=== PATIENT | female | born 1990 | race Caucasian/White ===

== ENCOUNTER 2016-12-23 18:14 | Emergency (ER) | payer MEDICAID ==
[~2016-12-23] VITALS: Ht 137.2 cm; Wt 56.7 kg
[2016-12-23 18:15] VITALS: BP_SYST 99
[2016-12-23] MEDS ORDERED: NACL 0.9% 1,000 ML IV ONE (19:27)
[2016-12-23] MEDS ORDERED: MORPHINE 4 MG/ML INJ. SYRINGE IVP ONE (19:30)
[2016-12-23] MEDS ORDERED: ONDANSETRON HCL 4 MG/2 ML VIAL IVP ONE (19:30)
[2016-12-23 19:47] LABS: BASOPHILS # (AUTO) 0.1 K/uL (0.0-0.2); BASOPHILS % (AUTO) 0.8 % (0.0-2.0); EOSINOPHILS # (AUTO) 0.3 K/uL (0.0-0.4); EOSINOPHILS % (AUTO) 1.9 % (0.0-4.0); HEMATOCRIT 43.4 % (36-48); HEMOGLOBIN 14.2 g/dL (12.0-16.0); LYMPHOCYTES # (AUTO) 4.3 K/uL (1.0-5.5); LYMPHOCYTES % (AUTO) 30.3 % (20.5-51.5); MEAN CORPUSCULAR HEMOGLOBIN 27 pg (27-31); MEAN CORPUSCULAR HGB CONC 33 % (32-36); MEAN CORPUSCULAR VOLUME 83 fL (79.0-98.0); MONOCYTES % (AUTO) 6.8 % (1.7-9.3); NEUTROPHILS # (AUTO) 8.6 K/uL (1.8-7.7); NEUTROPHILS % (AUTO) 60.2 % (40.0-70.0); PLATELET COUNT (AUTO) 404 K/uL (130-430); RED BLOOD CELL COUNT(AUTO) 5.21 MIL/uL (4.2-6.2); RED CELL DISTRIBUTION WIDTH 11.8 % (9.0-15.0); WHITE BLOOD COUNT (AUTO) 14.3 K/uL (4.8-10.8)
[2016-12-23 19:59] LABS: BILIRUBIN,URINE NEGATIVE (NEGATIVE); BLOOD, URINE NEGATIVE (NEGATIVE); CLARITY/URINE CLEAR (CLEAR); COLOR,URINE YELLOW (YELLOW); GLUCOSE,URINE NEGATIVE (NEGATIVE); KETONES,URINE NEGATIVE (NEGATIVE); LEUKOCYTE ESTERASE ,URINE NEGATIVE (NEGATIVE); NITRITE, URINE NEGATIVE (NEGATIVE); PH,URINE 6.5 (5.0-8.0); PROTEIN URINE NEGATIVE (NEGATIVE)
[2016-12-23 20:11] LABS: CALCIUM 9.3 mg/dL (8.4-11.0); CREATININE 0.62 mg/dL (0.55-1.30); POTASSIUM 4.3 mmol/L (3.5-5.1)
[2016-12-23 20:15] LABS: ALBUMIN 3.8 g/dL (3.4-4.8); TOTAL BILIRUBIN 0.3 mg/dL (0.0-1.0); TOTAL PROTEIN, SERUM 7.9 g/dL (6.4-8.3)
[2016-12-23] MEDS ORDERED: cefTRIAXone 250 MG in LIDOCAINE 1%, 20 ML MDV 0.9 ML IM ONE (21:00)
[2016-12-23] MEDS ORDERED: AZITHROMYCIN 250 MG TABLET PO ONE (21:00)
[2016-12-23 21:50] VITALS: BP_SYST 108
[2016-12-26 06:06] LABS: CHLAMYDIA TRACHOMATIS NAA Negative (Negative); NEISSERIA GONORRHOEAE NAA Negative (Negative)
== END 2016-12-23 21:50 | disposition home or self-care (01) ==
LOC: SED 18:14
DX: N20.0 Calculus of kidney (principal); B00.9 Herpesviral infection, unspecified; Z87.442 Personal history of urinary calculi
CPT/HCPCS: 36415; 74176; 80053; 81003; 83690; 85025; 87205; 87210; 87491; 87591; 96361; 96372; 96374; 96375; 99285; J0696; J2001; J2270; J2405; J7030; Q0144

== ENCOUNTER 2017-05-26 13:50 | Emergency (ER) | payer MEDICAID ==
[~2017-05-26] VITALS: Ht 139.7 cm; Wt 56.7 kg
--- NOTE | 2017-05-26 14:00 | NUR ---
Aurelia Calderon CODING SUPPORT SPECIALIST at bedside completing MSE
[2017-05-26 14:03] VITALS: BP_SYST 99
[2017-05-26 15:41] LABS: BILIRUBIN,URINE NEGATIVE (NEGATIVE); CLARITY/URINE CLEAR (CLEAR); COLOR,URINE YELLOW (YELLOW); GLUCOSE,URINE NEGATIVE (NEGATIVE); KETONES,URINE NEGATIVE (NEGATIVE); PROTEIN URINE NEGATIVE (NEGATIVE)
[2017-05-26 15:42] LABS: BLOOD, URINE NEGATIVE (NEGATIVE); LEUKOCYTE ESTERASE ,URINE NEGATIVE (NEGATIVE); NITRITE, URINE NEGATIVE (NEGATIVE); UROBILINOGEN,URINE NORMAL (0.2-1.0)
--- NOTE | 2017-05-26 17:22 | NUR ---
Called pt x 1, no answer
--- NOTE | 2017-05-26 17:30 | NUR ---
Called pt x2, no answer
--- NOTE | 2017-05-26 17:38 | NUR ---
Called pt x3 , no answer, pt LWBS
== END 2017-05-26 17:38 | disposition left against medical advice (07) ==
LOC: SED 13:50
DX: G43.909 Migraine, unspecified, not intractable, without status migrainosus (principal); R10.9 Unspecified abdominal pain; Z53.21 Procedure and treatment not carried out due to patient leaving prior to being seen by health care provider
CPT/HCPCS: 81003; 81025; 99281; 99284

== ENCOUNTER 2017-06-02 15:24 | Emergency (ER) | payer MEDICAID ==
[~2017-06-02] VITALS: Ht 139.7 cm; Wt 56.7 kg
[2017-06-02 15:29] VITALS: BP_SYST 102
--- NOTE | 2017-06-02 15:34 | NUR ---
Ambulatory to bed 6
--- NOTE | 2017-06-02 15:40 | NUR ---
AUSTYN Moses TUFTING SUPERVISOR at bedside examining patient.
--- NOTE | 2017-06-02 15:45 | NUR ---
Pt ambulated into ED c/o stuffy nose, non-productive cough, headahce, bodyaches, SOB and R sided sharp nonradiating chest pain x2-3 days. PT states she takes tramadol for her symptoms. Pt denies N/V/D. Pt speaking in full sentences, breathing even and unlabored. No other inujuries/complaints per pt/noted. Will continue to monitor.
[2017-06-02] MEDS: KETOROLAC TROMETHAMINE 60 MG/2 ML VIAL IM ONE (15:54)
--- NOTE | 2017-06-02 15:54 | NUR ---
Medication administered. Pt tolerated well. No adverse reactions noted.
--- NOTE | 2017-06-02 16:19 | NUR ---
Respiratory at bedside
[2017-06-02] MEDS: IPRATROPIUM/ALBUTEROL SULFATE 3 ML AMPUL.NEB INH ONE (16:26)
--- NOTE | 2017-06-02 16:38 | NUR ---
Patient given written and verbal discharge instructions and verbalizes understanding. AUSTYN Moses INSURANCE SALES REPRESENTATIVE discussed with patient the results and treatment provided. Patient in stable condition. ID arm band removed. Rx of Albuterol, Motrin, Fluticasone, Promethazine, Augmentin given. Patient educated on pain management and to follow up with PMD. Pain Scale 0. Opportunity for questions provided and answered.
[2017-06-02 16:42] VITALS: BP_SYST 112
== END 2017-06-02 16:41 | disposition home or self-care (01) ==
LOC: SED 15:24
DX: J01.00 Acute maxillary sinusitis, unspecified (principal); Z87.442 Personal history of urinary calculi
CPT/HCPCS: 81025; 94640; 96372; 99283; J1885

== ENCOUNTER 2018-03-07 12:14 | Emergency (ER) | payer MEDICAID ==
[~2018-03-07] VITALS: Ht 142.2 cm; Wt 59.0 kg
[2018-03-07 12:27] VITALS: BP_SYST 110
[2018-03-07] MEDS ORDERED: KETOROLAC TROMETHAMINE 60 MG/2 ML VIAL IM ONE (13:00)
[2018-03-07 13:07] LABS: BASOPHILS # (AUTO) 0.1 K/uL (0.0-0.2); EOSINOPHILS # (AUTO) 0.2 K/uL (0.0-0.4); EOSINOPHILS % (AUTO) 1.9 % (0.0-4.0); HEMATOCRIT 41.5 % (36-48); HEMOGLOBIN 13.5 g/dL (12.0-16.0); LYMPHOCYTES # (AUTO) 3.5 K/uL (1.0-5.5); LYMPHOCYTES % (AUTO) 27.8 % (20.5-51.5); MEAN CORPUSCULAR HEMOGLOBIN 27 pg (27-31); MEAN CORPUSCULAR HGB CONC 33 % (32-36); MEAN CORPUSCULAR VOLUME 84 fL (79.0-98.0); MONOCYTES # (AUTO) 0.7 K/uL (0.0-1.0); MONOCYTES % (AUTO) 5.8 % (1.7-9.3); NEUTROPHILS # (AUTO) 8.1 K/uL (1.8-7.7); NEUTROPHILS % (AUTO) 63.5 % (40.0-70.0); PLATELET COUNT (AUTO) 352 K/uL (130-430); RED BLOOD CELL COUNT(AUTO) 4.94 MIL/uL (4.2-6.2); RED CELL DISTRIBUTION WIDTH 11.3 % (9.0-15.0); WHITE BLOOD COUNT (AUTO) 12.6 K/uL (4.8-10.8)
[2018-03-07] MEDS ORDERED: KETOROLAC TROMETHAMINE 30 MG VIAL IVP ONE (13:15)
[2018-03-07 13:21] LABS: CALCIUM 8.9 mg/dL (8.4-11.0); CREATININE 0.68 mg/dL (0.55-1.30); POTASSIUM 3.7 mmol/L (3.5-5.1)
[2018-03-07 13:25] LABS: ALBUMIN 3.7 g/dL (3.4-4.8); TOTAL BILIRUBIN 0.3 mg/dL (0.0-1.0)
[2018-03-07 14:27] VITALS: BP_SYST 118
== END 2018-03-07 14:27 | disposition home or self-care (01) ==
LOC: SED 12:14
DX: R10.11 Right upper quadrant pain (principal); R73.9 Hyperglycemia, unspecified; R11.10 Vomiting, unspecified; Z87.442 Personal history of urinary calculi
CPT/HCPCS: 36415; 80053; 81025; 85025; 99285

== ENCOUNTER 2018-07-31 10:13 | Emergency (ER) | payer MEDICAID ==
[~2018-07-31] VITALS: Ht 139.7 cm; Wt 61.2 kg
[2018-07-31 10:23] VITALS: BP_SYST 107
[2018-07-31] MEDS ORDERED: NACL 0.9% 1,000 ML IV ONE (10:29)
[2018-07-31] MEDS ORDERED: ONDANSETRON HCL 4 MG/2 ML VIAL IVP ONE (10:30)
[2018-07-31] MEDS ORDERED: KETOROLAC TROMETHAMINE 30 MG VIAL IVP ONE (10:30)
[2018-07-31 11:10] LABS: BILIRUBIN,URINE NEGATIVE (NEGATIVE); BLOOD, URINE NEGATIVE (NEGATIVE); CLARITY/URINE CLEAR (CLEAR); COLOR,URINE YELLOW (YELLOW); GLUCOSE,URINE NEGATIVE (NEGATIVE); KETONES,URINE NEGATIVE (NEGATIVE); LEUKOCYTE ESTERASE ,URINE NEGATIVE (NEGATIVE); NITRITE, URINE NEGATIVE (NEGATIVE); PH,URINE 5.5 (5.0-8.0); PROTEIN URINE NEGATIVE (NEGATIVE); UROBILINOGEN,URINE 0.2 (0.2-1.0)
[2018-07-31 11:32] LABS: HEMATOCRIT 41.4 % (36-48); HEMOGLOBIN 14.1 g/dL (12.0-16.0); MEAN CORPUSCULAR HEMOGLOBIN 28 pg (27-31); MEAN CORPUSCULAR HGB CONC 34 % (32-36); MEAN CORPUSCULAR VOLUME 83 fL (79.0-98.0); PLATELET COUNT (AUTO) 409 K/uL (130-430); RED BLOOD CELL COUNT(AUTO) 4.97 MIL/uL (4.2-6.2); RED CELL DISTRIBUTION WIDTH 12.2 % (9.0-15.0); WHITE BLOOD COUNT (AUTO) 12.8 K/uL (4.8-10.8)
[2018-07-31 11:33] LABS: BASOPHILS # (AUTO) 0.1 K/uL (0.0-0.2); EOSINOPHILS # (AUTO) 0.2 K/uL (0.0-0.4); EOSINOPHILS % (AUTO) 1.6 % (0.0-4.0); LYMPHOCYTES # (AUTO) 4.6 K/uL (1.0-5.5); LYMPHOCYTES % (AUTO) 35.8 % (20.5-51.5); MONOCYTES # (AUTO) 0.9 K/uL (0.0-1.0); MONOCYTES % (AUTO) 7.4 % (1.7-9.3); NEUTROPHILS # (AUTO) 6.9 K/uL (1.8-7.7); NEUTROPHILS % (AUTO) 54.2 % (40.0-70.0)
[2018-07-31 11:39] LABS: CALCIUM 8.6 mg/dL (8.4-11.0); CREATININE 0.53 mg/dL (0.55-1.30)
[2018-07-31 11:44] LABS: ALBUMIN 3.8 g/dL (3.4-4.8); TOTAL BILIRUBIN 0.4 mg/dL (0.0-1.0)
[2018-07-31 11:47] LABS: INR 0.9 (0.8-1.2); PROTHROMBIN TIME 9.3 SECS (9.5-12.5)
[2018-07-31 13:15] VITALS: BP_SYST 107
== END 2018-07-31 13:15 | disposition home or self-care (01) ==
LOC: SED 10:13
DX: N28.89 Other specified disorders of kidney and ureter (principal); N23 Unspecified renal colic; K76.0 Fatty (change of) liver, not elsewhere classified; F17.200 Nicotine dependence, unspecified, uncomplicated; Z71.6 Tobacco abuse counseling; Z87.898 Personal history of other specified conditions
CPT/HCPCS: 36415; 71045; 74176; 80053; 81003; 81025; 82150; 82550; 83605; 83690; 85025; 85610; 85730; 87040; 96374; 96375; 99284; J1885; J2405; J7030

== ENCOUNTER 2018-11-27 21:06 | Emergency (ER) | payer MEDICAID ==
[~2018-11-27] VITALS: Ht 139.7 cm; Wt 59.0 kg
[2018-11-27 21:15] VITALS: BP_SYST 114
--- NOTE | 2018-11-27 21:15 | NUR ---
Pt to ER bed 6 for evaluaton. Bedrails up.
--- NOTE | 2018-11-27 21:25 | NUR ---
Pt is alert and oriented. Pt C/O left sided flank pain and dizzyness. Denies N/V/D. Pain stated 02/23. No other complaints at this time. VSS. Will continue to monitor.
--- NOTE | 2018-11-27 21:40 | NUR ---
ER MD JOSÉ AT BEDSIDE EXAMINING PATIENT.
[2018-11-27 21:51] LABS: BASOPHILS # (AUTO) 0.1 K/uL (0.0-0.2); BASOPHILS % (AUTO) 0.7 % (0.0-2.0); EOSINOPHILS # (AUTO) 0.3 K/uL (0.0-0.4); EOSINOPHILS % (AUTO) 2.5 % (0.0-4.0); HEMATOCRIT 40.2 % (36-48); HEMOGLOBIN 13.6 g/dL (12.0-16.0); LYMPHOCYTES # (AUTO) 5.6 K/uL (1.0-5.5); LYMPHOCYTES % (AUTO) 42.8 % (20.5-51.5); MEAN CORPUSCULAR HEMOGLOBIN 29 pg (27-31); MEAN CORPUSCULAR HGB CONC 34 % (32-36); MEAN CORPUSCULAR VOLUME 84 fL (79.0-98.0); MONOCYTES # (AUTO) 0.9 K/uL (0.0-1.0); MONOCYTES % (AUTO) 6.8 % (1.7-9.3); NEUTROPHILS # (AUTO) 6.2 K/uL (1.8-7.7); NEUTROPHILS % (AUTO) 47.2 % (40.0-70.0); PLATELET COUNT (AUTO) 340 K/uL (130-430); RED BLOOD CELL COUNT(AUTO) 4.77 MIL/uL (4.2-6.2); RED CELL DISTRIBUTION WIDTH 12.3 % (9.0-15.0); WHITE BLOOD COUNT (AUTO) 13.1 K/uL (4.8-10.8)
[2018-11-27 21:57] LABS: BILIRUBIN,URINE NEGATIVE (NEGATIVE); BLOOD, URINE NEGATIVE (NEGATIVE); CLARITY/URINE CLEAR (CLEAR); COLOR,URINE YELLOW (YELLOW); GLUCOSE,URINE NEGATIVE (NEGATIVE); KETONES,URINE NEGATIVE (NEGATIVE); LEUKOCYTE ESTERASE ,URINE NEGATIVE (NEGATIVE); NITRITE, URINE NEGATIVE (NEGATIVE); PH,URINE 6.5 (5.0-8.0); PROTEIN URINE NEGATIVE (NEGATIVE)
[2018-11-27 22:00] LABS: CALCIUM 9.1 mg/dL (8.4-11.0); CREATININE 0.86 mg/dL (0.55-1.30); POTASSIUM 3.7 mmol/L (3.5-5.1)
[2018-11-27] MEDS ORDERED: MORPHINE 4 MG/ML INJ. SYRINGE IVP ONE (22:00)
[2018-11-27] MEDS ORDERED: NACL 0.9% 1,000 ML IV ONE (22:00)
--- NOTE | 2018-11-27 22:05 | NUR ---
# 22 gauge angiocath placed to RAC. Use of asceptic technique. Opsite placed over site. Blood return noted. Flushed with 10 cc of normal saline. No evidence of infiltration noted. Patient tolerated well.
[2018-11-27 22:06] LABS: ALBUMIN 3.5 g/dL (3.4-4.8); TOTAL BILIRUBIN 0.1 mg/dL (0.0-1.0)
[2018-11-27] MEDS ORDERED: KETOROLAC TROMETHAMINE 30 MG VIAL IVP ONE (23:45)
--- NOTE | 2018-11-28 00:18 | NUR ---
Pt to radiology for xray and ct scan
[2018-11-28] MEDS ORDERED: MORPHINE 2 MG/ML INJ. SYRINGE IVP ONE (01:45)
[2018-11-28 02:00] VITALS: BP_SYST 121
--- NOTE | 2018-11-28 02:00 | NUR ---
Patient given written and verbal discharge instructions and verbalizes understanding. ER MD Bello discussed with patient the results and treatment provided. Patient in stable condition. ID arm band removed. IV catheter removed intact and dressing applied, no active bleeding. Rx of [place] given. Patient educated on pain management and to follow up with PMD. Pain Scale 2/10. Opportunity for questions provided and answered. Medication side effect fact sheet provided.
[2018-11-30 00:18] LABS: CHLAMYDIA TRACHOMATIS NAA Negative (Negative); NEISSERIA GONORRHOEAE NAA Negative (Negative)
== END 2018-11-28 02:00 | disposition home or self-care (01) ==
LOC: SED 21:06
DX: K57.32 Diverticulitis of large intestine without perforation or abscess without bleeding (principal); Z87.442 Personal history of urinary calculi
CPT/HCPCS: 36415; 71045; 74176; 80053; 81003; 85025; 87491; 87591; 96374; 96375; 96376; 99284; J1885; J2270 ×2; J7030

== ENCOUNTER 2019-05-02 10:47 | Emergency (ER) | payer MEDICAID ==
[~2019-05-02] VITALS: Ht 137.2 cm; Wt 61.2 kg
[2019-05-02 11:02] VITALS: BP_SYST 104
--- NOTE | 2019-05-02 11:05 | NUR ---
Patient to ER bed 4 to gown for evaluation. Side rails up.
--- NOTE | 2019-05-02 11:10 | NUR ---
pt came to ER experiencing flu like symptoms, sore throat, and swelling in the neck area. Pt AO4, RR even and unlabored, no apparent distress
--- NOTE | 2019-05-02 11:20 | NUR ---
ER at bedside examining patient.
--- NOTE | 2019-05-02 12:08 | NUR ---
Flu swab redone and sent to the lab.
[2019-05-02 12:23] LABS: BASOPHILS # (AUTO) 0.1 K/uL (0.0-0.2); EOSINOPHILS # (AUTO) 0.3 K/uL (0.0-0.4); EOSINOPHILS % (AUTO) 2.6 % (0.0-4.0); HEMATOCRIT 38.5 % (36-48); LYMPHOCYTES # (AUTO) 3.2 K/uL (1.0-5.5); LYMPHOCYTES % (AUTO) 26.5 % (20.5-51.5); MEAN CORPUSCULAR HEMOGLOBIN 28 pg (27-31); MEAN CORPUSCULAR HGB CONC 34 % (32-36); MEAN CORPUSCULAR VOLUME 84 fL (79.0-98.0); MONOCYTES % (AUTO) 7.8 % (1.7-9.3); NEUTROPHILS # (AUTO) 7.6 K/uL (1.8-7.7); NEUTROPHILS % (AUTO) 62.1 % (40.0-70.0); PLATELET COUNT (AUTO) 371 K/uL (130-430); RED BLOOD CELL COUNT(AUTO) 4.56 MIL/uL (4.2-6.2); RED CELL DISTRIBUTION WIDTH 12.5 % (9.0-15.0); WHITE BLOOD COUNT (AUTO) 12.2 K/uL (4.8-10.8)
[2019-05-02 12:27] LABS: CALCIUM 8.8 mg/dL (8.4-11.0); CREATININE 0.49 mg/dL (0.55-1.30)
--- NOTE | 2019-05-02 12:40 | NUR ---
Patient given written and verbal discharge instructions and verbalizes understanding. ER MD discussed with patient the results and treatment provided. Patient in stable condition. ID arm band removed. Rx of Keflex and Tramadol given. Patient educated on pain management and to follow up with PMD. Pain Scale 0. Opportunity for questions provided and answered. Medication side effect fact sheet provided.
[2019-05-02 13:46] VITALS: BP_SYST 104
== END 2019-05-02 14:50 | disposition home or self-care (01) ==
LOC: SED 10:47
DX: R22.0 Localized swelling, mass and lump, head (principal)
CPT/HCPCS: 36415; 80048; 85025; 86710; 99283

== ENCOUNTER 2019-05-17 09:38 | Emergency (ER) | payer MEDICAID ==
[~2019-05-17] VITALS: Ht 137.2 cm; Wt 61.2 kg
[2019-05-17 09:40] VITALS: BP_SYST 99
--- NOTE | 2019-05-17 09:45 | NUR ---
Patient triaged and placed in waiting room. VSS and patient appears in no acute distress at this time. Accompanied by FAMILY, awaiting available bed, and MD notified of need for MSE.
--- NOTE | 2019-05-17 11:07 | NUR ---
PT LEFT WITHOUT BEING SEEN BY MD.
== END 2019-05-17 11:07 | disposition left against medical advice (07) ==
LOC: SED 09:38
DX: M54.5 Low back pain (principal); Z53.21 Procedure and treatment not carried out due to patient leaving prior to being seen by health care provider

== ENCOUNTER 2019-06-06 10:07 | Emergency (ER) | payer MEDICAID ==
[~2019-06-06] VITALS: Ht 137.2 cm; Wt 60.8 kg
[2019-06-06 10:15] VITALS: BP_SYST 108
--- NOTE | 2019-06-06 10:19 | NUR ---
Patient to ER bed 05 to gown for evaluation. Side rails up.
--- NOTE | 2019-06-06 10:30 | NUR ---
Patient brought in self with c/o body aches, chills, cold x 2 days. Patient reported to have taken son for flu-like symptoms here on Wednesday. Patient does not report of fever. Patient noted to be coughing, congested, and sniffling. Patient does not complain of pain. Patient in no signs of distress.
--- NOTE | 2019-06-06 10:45 | NUR ---
ER Dr. Cavanaugh at bedside examining patient.
[2019-06-06 10:57] VITALS: BP_SYST 108
--- NOTE | 2019-06-06 10:57 | NUR ---
Patient given written and verbal discharge instructions and verbalizes understanding. ER MD discussed with patient the results and treatment provided. Patient in stable condition. ID arm band removed. Rx of Tamiflu and Zofran given. Patient educated on pain management and to follow up with PMD. Pain Scale 3/10 tolerable for pt. Opportunity for questions provided and answered. Medication side effect fact sheet provided.
== END 2019-06-06 10:57 | disposition home or self-care (01) ==
LOC: SED 10:07
DX: J11.1 Influenza due to unidentified influenza virus with other respiratory manifestations (principal)
CPT/HCPCS: 99283

== ENCOUNTER 2020-02-29 12:38 | Emergency (ER) | payer MEDICAID, SELFPAY ==
[~2020-02-29] VITALS: Ht 139.7 cm; Wt 59.4 kg
[2020-02-29 12:40] VITALS: BP_SYST 103
[2020-02-29 13:43] VITALS: BP_SYST 103
== END 2020-02-29 13:45 | disposition home or self-care (01) ==
LOC: SED 12:38
DX: R07.89 Other chest pain (principal); Z87.442 Personal history of urinary calculi; Z20.828 Contact with and (suspected) exposure to other viral communicable diseases
CPT/HCPCS: 36415; 99283

== ENCOUNTER 2020-12-25 20:27 | Emergency (ER) | payer MEDICAID, SELFPAY ==
[~2020-12-25] VITALS: Ht 139.7 cm; Wt 59.0 kg
[2020-12-25 20:38] VITALS: BP_SYST 101
[2020-12-25 21:46] LABS: BASOPHILS # (AUTO) 0.1 K/uL (0.0-0.2); BASOPHILS % (AUTO) 0.6 % (0.0-2.0); EOSINOPHILS # (AUTO) 0.3 K/uL (0.0-0.4); EOSINOPHILS % (AUTO) 2.5 % (0.0-4.0); HEMATOCRIT 40.5 % (36-48); HEMOGLOBIN 13.9 g/dL (12.0-16.0); LYMPHOCYTES # (AUTO) 5.1 K/uL (1.0-5.5); LYMPHOCYTES % (AUTO) 41.9 % (20.5-51.5); MEAN CORPUSCULAR HEMOGLOBIN 29 pg (27-31); MEAN CORPUSCULAR HGB CONC 34 % (32-36); MEAN CORPUSCULAR VOLUME 83 fL (79.0-98.0); MONOCYTES # (AUTO) 0.8 K/uL (0.0-1.0); MONOCYTES % (AUTO) 6.7 % (1.7-9.3); NEUTROPHILS # (AUTO) 5.9 K/uL (1.8-7.7); NEUTROPHILS % (AUTO) 48.3 % (40.0-70.0); PLATELET COUNT (AUTO) 391 K/uL (130-430); RED BLOOD CELL COUNT(AUTO) 4.87 MIL/uL (4.2-6.2); RED CELL DISTRIBUTION WIDTH 12.3 % (9.0-15.0); WHITE BLOOD COUNT (AUTO) 12.1 K/uL (4.8-10.8)
[2020-12-25 22:07] LABS: ANION GAP 9 (5-15); CALCIUM 9.1 mg/dL (8.4-11.0); CHLORIDE 103 mmol/L (98-107); CREATININE 0.87 mg/dL (0.55-1.30); GLUCOSE 114 mg/dL (70-99); POTASSIUM 4.3 mmol/L (3.5-5.1); SODIUM SERUM 141 mmol/L (136-145); UREA NITROGEN, BLOOD 15 mg/dL (8-21)
[2020-12-25 22:20] LABS: ALANINE AMINOTRANSFERASE 38 U/L (12-78); ALBUMIN 3.9 g/dL (3.4-4.8); ASPARTATE AMINOTRANSFERASE 21 U/L (10-37); TOTAL BILIRUBIN 0.2 mg/dL (0.0-1.0)
[2020-12-25 22:25] LABS: GFR AFRICAN AMERICAN 98 mL/min (>90)
[2020-12-25] MEDS ORDERED: ACETAMINOPHEN 500 MG TABLET PO ONE (23:30)
[2020-12-26] MEDS ORDERED: IBUP-1969 PO (00:05)
[2020-12-26 00:10] VITALS: BP_SYST 108
[2021-01-07] MEDS ORDERED: HYDR-3917 PO (04:50)
== END 2020-12-26 00:10 | disposition home or self-care (01) ==
LOC: SED 20:27
DX: K43.9 Ventral hernia without obstruction or gangrene (principal); K21.9 Gastro-esophageal reflux disease without esophagitis; Z79.899 Other long term (current) drug therapy
CPT/HCPCS: 36415; 71045; 80053; 81025; 84484; 85025; 93005; 99285

== ENCOUNTER 2021-01-06 04:40 | Emergency (ER) | payer MEDICAID ==
[~2021-01-06] VITALS: Ht 139.7 cm; Wt 59.0 kg
[~2021-01-06 04:40] MED LIST: IBUP-1969 PO
[2021-01-06 04:52] VITALS: BP_SYST 103
--- NOTE | 2021-01-06 04:55 | NUR ---
Patient triaged and placed in waiting room. VSS and patient appears in no acute distress at this time. Accompanied by , awaiting available bed, and MD notified of need for MSE.
--- NOTE | 2021-01-06 04:56 | NUR ---
Patient came in to the emergency room with complains of headache for three days. Pt describes sharp,pounding, constant 10/10 pain in bilateral temples with radiation to bilateral neck. Pt denies fever. Pt with chills, nausea and vomiting. Pt denies chest pain or SOB. Pt denies dysuria. Pt took Tylenol and Motrin without relief pain. Pt with cough and body aches. 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 Patient breathing easy, not in distress. Patient verbalizes the same experience of headache in the past but usually goes away with pain medicine.
--- NOTE | 2021-01-06 05:07 | NUR ---
ER examining patientin triage.
[2021-01-06] MEDS ORDERED: ONDANSETRON 4 MG ODT TAB PO ONE (05:15)
[2021-01-06] MEDS ORDERED: KETOROLAC TROMETHAMINE 60 MG/2 ML VIAL IM ONE (05:15)
[2021-01-06] MEDS ORDERED: ONDA4TAB5 PO (05:24)
[2021-01-06] MEDS ORDERED: HYDR-3917 PO (05:24)
[2021-01-06] MEDS ORDERED: IBUP-1969 PO (05:24)
[2021-01-06 06:13] VITALS: BP_SYST 105
--- NOTE | 2021-01-06 06:13 | NUR ---
Patient given written and verbal discharge instructions and verbalizes understanding. ER MD discussed with patient the results and treatment provided. Patient in stable condition. ID arm band removed. Rx of Zofran, [place] 5/325mg and Ibuprofen sent to pharmacy of choice. Patient educated on pain management and to follow up with PMD. Pain Scale 4/10 PS. Opportunity for questions provided and answered.
[2021-01-07] MEDS ORDERED: HYDR-3917 PO (04:50)
== END 2021-01-06 06:13 | disposition home or self-care (01) ==
LOC: SED 04:40
DX: R51.9 Headache, unspecified (principal); K21.9 Gastro-esophageal reflux disease without esophagitis; Z20.822 Contact with and (suspected) exposure to COVID-19; Z79.899 Other long term (current) drug therapy
CPT/HCPCS: 96372; 99283; C9803; J1885; Q0162; U0003

== ENCOUNTER 2022-10-05 10:56 | Emergency (ER) | payer MEDICAID ==
[~2022-10-05] VITALS: Ht 137.2 cm; Wt 59.0 kg
[~2022-10-05 10:56] MED LIST changes: +HYDR-3917 PO; +ONDA4TAB5 PO
[2022-10-05 11:50] VITALS: BP_SYST 101
[2022-10-05] MEDS ORDERED: NACL 0.9% 1,000 ML IV ONE (12:00)
[2022-10-05] MEDS ORDERED: ONDANSETRON HCL 4 MG/2 ML VIAL IVP ONE (12:00)
[2022-10-05] MEDS ORDERED: KETOROLAC TROMETHAMINE 30 MG VIAL IVP ONE (12:00)
[2022-10-05] MEDS ORDERED: DIPHENHYDRAMINE INJ 50 MG/ML VIAL IVP ONE (12:00)
[2022-10-05] MEDS ORDERED: HYDR-3917 PO (13:39)
[2022-10-05] MEDS ORDERED: ONDA-8 TL (13:41)
[2022-10-05 13:49] LABS: CALCIUM 8.2 mg/dL (8.4-11.0); CREATININE 0.54 mg/dL (0.55-1.30)
[2022-10-05 13:54] LABS: ALBUMIN 3.6 g/dL (3.4-4.8); TOTAL BILIRUBIN 0.3 mg/dL (0.0-1.0)
[2022-10-05] MEDS ORDERED: MORPHINE 4 MG INJ. 4 MG/ML VIAL IM ONE (14:00)
[2022-10-05 15:51] VITALS: BP_SYST 101
== END 2022-10-05 14:25 | disposition home or self-care (01) ==
LOC: SED 10:56
DX: R51.9 Headache, unspecified (principal); K21.9 Gastro-esophageal reflux disease without esophagitis; Z79.899 Other long term (current) drug therapy
CPT/HCPCS: 99285; 96360; 70450; 80053; 36415; 76376; 96372; J2270; J7030

== ENCOUNTER 2022-11-19 08:06 | Emergency (ER) | payer MEDICAID ==
[~2022-11-19] VITALS: Ht 139.7 cm; Wt 63.5 kg
[~2022-11-19 08:06] MED LIST changes: +ONDA-8 TL
[2022-11-19 08:20] VITALS: BP_SYST 111; PULSE 88; RESP 22; TEMP 97.9; O2SAT 98
[2022-11-19] MEDS ORDERED: KETOROLAC TROMETHAMINE 60 MG/2 ML VIAL IM ONE (08:45)
[2022-11-19 08:57] LABS: ERYTHROCYTE SEDIMENTATION RATE 6 MM/HR (0-20)
[2022-11-19 08:59] LABS: BASOPHILS % (AUTO) 1.1 % (0.0-2.0); EOSINOPHILS # (AUTO) 0.1 K/uL (0.0-0.4); EOSINOPHILS % (AUTO) 1.4 % (0.0-4.0); HEMATOCRIT 41.9 % (36-48); HEMOGLOBIN 13.7 g/dL (12.0-16.0); LYMPHOCYTES # (AUTO) 0.7 K/uL (1.0-5.5); LYMPHOCYTES % (AUTO) 17.7 % (20.5-51.5); MEAN CORPUSCULAR HEMOGLOBIN 27 pg (27-31); MEAN CORPUSCULAR HGB CONC 33 % (32-36); MEAN CORPUSCULAR VOLUME 84 fL (79.0-98.0); MONOCYTES # (AUTO) 0.6 K/uL (0.0-1.0); MONOCYTES % (AUTO) 16.3 % (1.7-9.3); NEUTROPHILS # (AUTO) 2.3 K/uL (1.8-7.7); NEUTROPHILS % (AUTO) 63.5 % (40.0-70.0); PLATELET COUNT (AUTO) 267 K/uL (130-430); RED BLOOD CELL COUNT(AUTO) 5.02 MIL/uL (4.2-6.2); RED CELL DISTRIBUTION WIDTH 12.1 % (9.0-15.0); WHITE BLOOD COUNT (AUTO) 3.7 K/uL (4.8-10.8)
[2022-11-19 09:08] LABS: CALCIUM 8.6 mg/dL (8.4-11.0); CREATININE 0.62 mg/dL (0.55-1.30)
[2022-11-19 09:12] LABS: PROTHROMBIN TIME 10.1 SECS (9.5-12.5)
[2022-11-19 09:48] LABS: ALBUMIN 3.5 g/dL (3.4-4.8); TOTAL BILIRUBIN 0.2 mg/dL (0.0-1.0)
[2022-11-19 10:53] LABS: BILIRUBIN,URINE NEGATIVE (NEGATIVE); BLOOD, URINE 3+ (NEGATIVE); CLARITY/URINE CLEAR (CLEAR); GLUCOSE,URINE NEGATIVE (NEGATIVE); KETONES,URINE NEGATIVE (NEGATIVE); LEUKOCYTE ESTERASE ,URINE NEGATIVE (NEGATIVE); NITRITE, URINE NEGATIVE (NEGATIVE); PROTEIN URINE NEGATIVE (NEGATIVE); UROBILINOGEN,URINE 0.2 (0.2-1.0)
[2022-11-19 10:55] LABS: COLOR,URINE STRAW (YELLOW)
[2022-11-19] MEDS ORDERED: TRAM50TA2 PO (11:10)
[2022-11-19] MEDS ORDERED: IBUP-1969 PO (11:10)
[2022-11-19 11:14] LABS: BACTERIA,URINE RARE /HPF (None Seen); WBC,URINE 0-3 /HPF (0-3)
[2022-11-19 11:19] VITALS: BP_SYST 111; PULSE 88; RESP 22; TEMP 97.9; O2SAT 98
== END 2022-11-19 11:18 | disposition home or self-care (01) ==
LOC: SED 08:06
DX: M79.10 Myalgia, unspecified site (principal); R51.9 Headache, unspecified; R05.9 Cough, unspecified; K21.9 Gastro-esophageal reflux disease without esophagitis; Z79.899 Other long term (current) drug therapy; Z20.822 Contact with and (suspected) exposure to COVID-19
CPT/HCPCS: 99284; 71045; 87426; 80053; 81000; 82550; 85025; 85610; 85651; 85730; 36415; 96372; 87804 ×2; 82397; J1885

== ENCOUNTER 2023-06-18 11:28 | Emergency (ER) | payer MEDICAID ==
[~2023-06-18 11:28] MED LIST changes: +TRAM50TA2 PO
[2023-06-18 12:18] LABS: BILIRUBIN,URINE NEGATIVE (NEGATIVE); BLOOD, URINE NEGATIVE (NEGATIVE); CLARITY/URINE CLEAR (CLEAR); COLOR,URINE YELLOW (YELLOW); GLUCOSE,URINE NEGATIVE (NEGATIVE); KETONES,URINE NEGATIVE (NEGATIVE); LEUKOCYTE ESTERASE ,URINE NEGATIVE (NEGATIVE); NITRITE, URINE NEGATIVE (NEGATIVE); PROTEIN URINE NEGATIVE (NEGATIVE); UROBILINOGEN,URINE 0.2 (0.2-1.0)
[2023-06-18 13:47] VITALS: BP_SYST 133; PULSE 82; RESP 18; TEMP 98; O2SAT 97
== END 2023-06-18 13:47 | disposition home or self-care (01) ==
LOC: SED 11:28
DX: R10.9 Unspecified abdominal pain (principal); K21.9 Gastro-esophageal reflux disease without esophagitis; Z79.899 Other long term (current) drug therapy
CPT/HCPCS: 76376; 81001; 81003; 81025; 99284

== ENCOUNTER 2023-07-20 09:28 | Emergency (ER) | payer MEDICAID ==
[~2023-07-20] VITALS: Ht 137.2 cm; Wt 59.4 kg
[2023-07-20 09:33] VITALS: BP_SYST 98; PULSE 67; RESP 15; TEMP 97.8; O2SAT 99
[2023-07-20 10:13] LABS: BASOPHILS # (AUTO) 0.1 K/uL (0.0-0.2); BASOPHILS % (AUTO) 0.7 % (0.0-2.0); EOSINOPHILS # (AUTO) 0.1 K/uL (0.0-0.4); EOSINOPHILS % (AUTO) 0.7 % (0.0-4.0); HEMATOCRIT 42.9 % (36-48); HEMOGLOBIN 14.7 g/dL (12.0-16.0); LYMPHOCYTES # (AUTO) 3.9 K/uL (1.0-5.5); LYMPHOCYTES % (AUTO) 31.8 % (20.5-51.5); MEAN CORPUSCULAR HEMOGLOBIN 29 pg (27-31); MEAN CORPUSCULAR HGB CONC 34 % (32-36); MEAN CORPUSCULAR VOLUME 84 fL (79.0-98.0); MONOCYTES # (AUTO) 0.6 K/uL (0.0-1.0); MONOCYTES % (AUTO) 5.3 % (1.7-9.3); NEUTROPHILS # (AUTO) 7.5 K/uL (1.8-7.7); NEUTROPHILS % (AUTO) 61.5 % (40.0-70.0); PLATELET COUNT (AUTO) 438 K/uL (130-430); RED BLOOD CELL COUNT(AUTO) 5.12 MIL/uL (4.2-6.2); RED CELL DISTRIBUTION WIDTH 11.9 % (9.0-15.0); WHITE BLOOD COUNT (AUTO) 12.2 K/uL (4.8-10.8)
[2023-07-20] MEDS: PROCHLORPERAZINE EDISYLATE 10 MG/2 ML VIAL IM ONE (10:18)
[2023-07-20] MEDS: KETOROLAC TROMETHAMINE 30 MG VIAL IM ONE (10:18)
[2023-07-20 10:23] LABS: CALCIUM 10.4 mg/dL (8.4-11.0); CREATININE 0.76 mg/dL (0.55-1.30)
[2023-07-20] MEDS: NACL 0.9% 1,000 ML IV ONE (10:27)
[2023-07-20] MEDS ORDERED: MECL-292 PO (10:55)
[2023-07-20] MEDS ORDERED: ONDA-8 TL (10:55)
[2023-07-20 11:03] VITALS: BP_SYST 99; PULSE 68; RESP 16; TEMP 97.6; O2SAT 100
== END 2023-07-20 11:00 | disposition home or self-care (01) ==
LOC: SED 09:28
DX: K29.00 Acute gastritis without bleeding (principal); R42 Dizziness and giddiness; R11.0 Nausea; R51.9 Headache, unspecified; K21.9 Gastro-esophageal reflux disease without esophagitis; F12.90 Cannabis use, unspecified, uncomplicated; Z79.899 Other long term (current) drug therapy
CPT/HCPCS: 99284; 96360; 80048; 85025; 36415; 81025; 96372; 82948; J1885; J0780; J7030

== ENCOUNTER 2023-10-28 11:17 | Emergency (ER) | payer MEDICAID ==
[~2023-10-28] VITALS: Ht 137.2 cm; Wt 59.0 kg
[2023-10-28 11:17] VITALS: BP_SYST 122; PULSE 75; RESP 18; TEMP 97.5; O2SAT 95
[~2023-10-28 11:17] MED LIST changes: +MECL-292 PO
[2023-10-28] MEDS ORDERED: LOM2.5 PO (11:49)
[2023-10-28 11:59] LABS: BILIRUBIN,URINE NEGATIVE (NEGATIVE); BLOOD, URINE NEGATIVE (NEGATIVE); CLARITY/URINE CLEAR (CLEAR); COLOR,URINE YELLOW (YELLOW); GLUCOSE,URINE 3+ (NEGATIVE); KETONES,URINE NEGATIVE (NEGATIVE); LEUKOCYTE ESTERASE ,URINE NEGATIVE (NEGATIVE); NITRITE, URINE NEGATIVE (NEGATIVE); PROTEIN URINE NEGATIVE (NEGATIVE); UROBILINOGEN,URINE 0.2 (0.2-1.0)
[2023-10-28 12:00] VITALS: BP_SYST 122; PULSE 75; RESP 18; TEMP 97.5; O2SAT 95
== END 2023-10-28 11:58 | disposition home or self-care (01) ==
LOC: SED 11:17
DX: K52.9 Noninfective gastroenteritis and colitis, unspecified (principal); R11.10 Vomiting, unspecified; K21.9 Gastro-esophageal reflux disease without esophagitis; Z87.442 Personal history of urinary calculi; Z79.899 Other long term (current) drug therapy; Z79.2 Long term (current) use of antibiotics
CPT/HCPCS: 81001; 81003; 81025; 99283

== ENCOUNTER 2023-12-12 11:50 | Emergency (ER) | payer MEDICAID ==
[~2023-12-12] VITALS: Ht 139.7 cm; Wt 45.4 kg
[~2023-12-12 11:50] MED LIST changes: +LOM2.5 PO
[2023-12-12 12:07] VITALS: BP_SYST 97; PULSE 90; RESP 17; TEMP 97.4; O2SAT 98
[2023-12-12 12:57] LABS: BASOPHILS # (AUTO) 0.1 K/uL (0.0-0.2); BASOPHILS % (AUTO) 0.7 % (0.0-2.0); EOSINOPHILS # (AUTO) 0.1 K/uL (0.0-0.4); EOSINOPHILS % (AUTO) 0.8 % (0.0-4.0); HEMATOCRIT 41.8 % (36-48); HEMOGLOBIN 13.9 g/dL (12.0-16.0); LYMPHOCYTES # (AUTO) 3.4 K/uL (1.0-5.5); LYMPHOCYTES % (AUTO) 27.1 % (20.5-51.5); MEAN CORPUSCULAR HEMOGLOBIN 28 pg (27-31); MEAN CORPUSCULAR HGB CONC 33 % (32-36); MEAN CORPUSCULAR VOLUME 84 fL (79.0-98.0); MONOCYTES # (AUTO) 0.7 K/uL (0.0-1.0); MONOCYTES % (AUTO) 5.9 % (1.7-9.3); NEUTROPHILS # (AUTO) 8.3 K/uL (1.8-7.7); NEUTROPHILS % (AUTO) 65.5 % (40.0-70.0); PLATELET COUNT (AUTO) 414 K/uL (130-430); RED BLOOD CELL COUNT(AUTO) 4.95 MIL/uL (4.2-6.2); RED CELL DISTRIBUTION WIDTH 12.6 % (9.0-15.0); WHITE BLOOD COUNT (AUTO) 12.7 K/uL (4.8-10.8)
[2023-12-12 13:00] VITALS: BP_SYST 97; PULSE 90; RESP 17; TEMP 97.4; O2SAT 98
[2023-12-12 13:10] LABS: ALBUMIN 3.8 g/dL (3.4-4.8); CALCIUM 9.3 mg/dL (8.4-11.0); CREATININE 0.67 mg/dL (0.55-1.30); POTASSIUM 3.8 mmol/L (3.5-5.1); TOTAL BILIRUBIN 0.4 mg/dL (0.0-1.0); TOTAL PROTEIN, SERUM 7.1 g/dL (6.4-8.3)
[2023-12-12 13:55] LABS: INFLUENZA TYPE A Negative (NEGATIVE); INFLUENZA TYPE B NEGATIVE (NEGATIVE)
== END 2023-12-12 14:55 | disposition home or self-care (01) ==
LOC: SED 11:50
DX: R11.2 Nausea with vomiting, unspecified (principal); A05.9 Bacterial foodborne intoxication, unspecified; Z20.822 Contact with and (suspected) exposure to COVID-19; K21.9 Gastro-esophageal reflux disease without esophagitis; Z87.442 Personal history of urinary calculi; Z79.899 Other long term (current) drug therapy; Z79.2 Long term (current) use of antibiotics
CPT/HCPCS: 36415; 80053; 83690; 85025; 93005; 99284